=== PATIENT | female | born 1980 | race Caucasian/White ===

== ENCOUNTER 2020-04-09 15:17 | Emergency (ER) | payer MEDICAID, OTHER ==
[~2020-04-09] VITALS: Ht 154.9 cm; Wt 95.3 kg
[2020-04-09 15:20] VITALS: BP 188/83
[2020-04-09 15:38] VITALS: BP 188/83
--- NOTE | 2020-04-09 15:39 | ER.PDOC ---
General Chief Complaint: Requesting Medical Care Stated Complaint: TOOTH PAIN Time seen by MD: 15:18 Source: patient Exam Limitations: no limitations History of Present Illness Initial Comments Pt states toothache x 4 days, fever unknown, pt states she does not have a PCP. Pt states she lost her job and cannot afford a dentist. Pt states she is not taking her Clonidine for her Blood Pressure, pt states she stopped going to the PCP. Timing/Duration: other Associated Symptoms: toothache Severity: moderate Allergies: Coded Allergies: No Known Allergies (Unverified , 04/09/20) Results/Orders Results/Orders Vital Signs Date Time Temp Pulse Resp B/P (MAP) Pulse Ox O2 Delivery O2 Flow Rate FiO2 04/09/20 15:38 98.0 101 16 96 04/09/20 15:20 98.0 101 16 96 04/09/20 15:20 98.0 101 16 Progress Progress I discussed signs and symptoms and treatment and discharge with Dr Mckeon Departure Time of Disposition: 16:00 Disposition: 01 HOME, SELF-CARE Impression: Primary Impression: Toothache Additional Impression: High blood pressure Qualified Codes: I10 - Essential (primary) hypertension Condition: Stable Patient Instructions: Hypertension, Hypertension-SportsMed, Ischemic Stroke, Stroke Prevention, Toothache-Brief Referrals: PCP,UNKNOWN (PCP) PRIMARY CARE PROVIDER Additional Instructions: Return if symptoms worsen. See PCP this week for primary care and high blood pressure, Take Amoxicillin 500 mg three times a day by mouth x 10 days 30# Lisinopril 20 mg one tablet by mouth once a day x 30 days 30# Pt agrees if headache, dizziness, vision problems, weakness and or chest pain or any other concerns pt agrees to go to the ER. See Dentist VISHAL Duration or Time Spent with Pa: 17 minutes Return to Work/School Can a patient return to work?: No Can a patient return to school: No [employer] April 09, 2020 15:39
== END 2020-04-09 16:00 | disposition home or self-care (01) ==
LOC: ER 15:17
DX: K08.89 Other specified disorders of teeth and supporting structures (principal); I10 Essential (primary) hypertension
CPT/HCPCS: 99283

== ENCOUNTER 2020-06-25 13:06 | Emergency (ER) | payer OTHER ==
[~2020-06-25] VITALS: Ht 152.4 cm; Wt 95.7 kg
--- NOTE | 2020-06-25 13:06 | NUR ---
ARRIVAL PT ARRIVED TO ED WTIH C/O RIGHT UPPER SIDE TOOTHACHE THAT STARTED YESTERDAY. PT HAS SWELLING TO RIGHT SIDE OF HER FACE. BEDSIDE MONITORS APPLIED. VITAL SIGNS STABLE. BED IN LOW LOCKED POSITION.
[2020-06-25 13:23] VITALS: BP 173/85
--- NOTE | 2020-06-25 13:26 | ER.PDOC ---
General Chief Complaint: Requesting Medical Care Stated Complaint: TOOTHACHE Time seen by MD: 13:22 Source: patient Exam Limitations: no limitations History of Present Illness Initial Comments Toothache for past few days, no fever or chills. Was here 3 Months ago for same. Timing/Duration: gradual Associated Symptoms: toothache, jaw pain (R) Severity: moderate Allergies: Coded Allergies: No Known Allergies (Unverified , 04/09/20) Past Medical History Medical History: hypertension Surgical History: cholecystectomy Social History Drug Use: none Constitutional: no symptoms reported Mouth: see HPI Respiratory: no symptoms reported Cardiovascular: no symptoms reported Gastrointestinal: no symptoms reported Musculoskeletal: no symptoms reported All Other Systems: Reviewed and Negative Physical Exam General Appearance: alert, no distress Mouth: dental tenderness (right upper molar), widespread dental decay Throat: pharynx nml, voice nml, no airway problems Respiratory: no resp. distress, lungs clear CVS: reg. rate & rhythm, heart sounds nml Abdomen: non-tender, no organomegaly Extremities: non-tender, ROM nml Skin Exam: Normal Color, Warm/Dry NEURO/PSYCH: oriented X3, mood/effect nml Departure Time of Disposition: 13:25 Disposition: 01 HOME, SELF-CARE Impression: Primary Impression: Infected dental carries Condition: Stable Referrals: PCP,UNKNOWN (PCP) PRIMARY CARE PROVIDER Additional Instructions: Clindamycin Ibuprofen F/U with your Dentist in 1-2 days Return to ED if worsening or concerns Duration or Time Spent with Pa: 10 min DOE VILLA MD Jun 25, 2020 13:26
== END 2020-06-25 13:29 | disposition home or self-care (01) ==
LOC: ER 13:06
DX: K04.7 Periapical abscess without sinus (principal); K02.9 Dental caries, unspecified; I10 Essential (primary) hypertension; Z90.49 Acquired absence of other specified parts of digestive tract
CPT/HCPCS: 99283

== ENCOUNTER 2020-07-04 09:42 | Emergency (ER) | payer OTHER ==
[~2020-07-04] VITALS: Ht 152.4 cm; Wt 95.7 kg
[2020-07-04 09:55] VITALS: BP 154/93
[2020-07-04 10:00] VITALS: BP 154/93
--- NOTE | 2020-07-04 10:01 | NUR ---
ARRIVAL PATIENT ARRIVED TO [facility] AMBULATORY, C/O OF FEVER AND SORE THROAT FOR THE LAST 3-4 DAYS, PATIENT HAS BEEN TREATING HERSELF WITH OVER THE COUNTER MEDICATIONS WITH NO RELIEF, CAME TODAY TO THE ED FOR EVAL.
--- NOTE | 2020-07-04 10:12 | ER.PDOC ---
General Chief Complaint: Sore Throat Stated Complaint: SORE THROAT,BODY ACHE FEVER,COUGH Time seen by MD: 10:12 Source: patient Exam Limitations: no limitations History of Present Illness Timing/Duration: gradual Associated Symptoms: fever/chills, mod sore throat, congestion Severity: moderate Worsen By: nothing Prior symptoms/Treatment: Similar symptoms previous Allergies: Coded Allergies: No Known Allergies (Unverified , 04/09/20) Past Medical History Medical History: hypertension Surgical History: appendectomy Family History Significant Family History: no pertinent family hx Social History Smoking: non-smoker Alcohol Use: none Drug Use: none Constitutional: chills, fever Eyes: denies no symptoms reported, denies see HPI, denies blindness, denies blurred vision, denies drainage, denies decreased acuity, denies foreign body sensation, denies inflammation, denies pain, denies photophobia, denies previous injury, denies shadows, denies tunnel vision, denies vision change, denies contact lenses, denies glasses, denies other Ears: denies no symptoms reported, denies see HPI, denies dizziness, denies pain, denies tinnitus, denies bloody discharge, denies clear discharge, denies purulent discharge, denies serosanguinous discharge, denies previous injury, denies other Nose: denies no symptoms reported, denies see HPI, denies clots, denies congestion, denies epistaxis, denies pain, denies bloody discharge, denies clear discharge, denies purulent discharge, denies serosanguinous discharge, denies previous injury, denies other Mouth: denies no symptoms reported, denies see HPI, denies clots, denies loose teeth, denies pain, denies swelling, denies bloody discharge, denies clear discharge, denies purulent discharge, denies serosanguinous discharge, denies previous injury, denies other Throat: swelling, painful swallowing Respiratory: denies no symptoms reported, denies see HPI, denies cough, denies orthopnea, denies shortness of breath, denies stridor, denies wheezing, denies other Cardiovascular: denies no symptoms reported, denies see HPI, denies chest pain, denies edema, denies palpitations, denies syncope, denies other Gastrointestinal: denies no symptoms reported, denies see HPI, denies abdominal pain, denies constipation, denies diarrhea, denies nausea, denies vomiting, denies other Musculoskeletal: denies no symptoms reported, denies see HPI, denies back pain, denies gout, denies joint pain, denies joint swelling, denies muscle pain, denies muscle stiffness, denies neck pain, denies other Skin: denies no symptoms reported, denies see HPI, denies change in color, denies change in hair/nails, denies dryness, denies lesions, denies lumps, denies rash, denies other Neurological: denies no symptoms reported, denies see HPI, denies anxiety, denies depressed, denies emotional problems, denies headache, denies numbness, denies paresthesia, denies pre-existing deficit, denies seizure, denies tingling, denies tremors, denies weakness, denies other Hematologic/Lymphatic: denies no symptoms reported, denies see HPI, denies anemia, denies blood clots, denies easy bleeding, denies easy bruising, denies swollen glands, denies other Immunological/Allergic: denies no symptoms reported, denies see HPI, denies food allergy, denies grass allergy, denies mold allergy, denies pollen allergy, denies HIV/AIDS, denies transplant Physical Exam General Appearance: mild distress Head/Neck: head nml inspection, neck nml inspection, trachea midline, no lymphadenopathy, thyroid nml Eyes: eyes nml inspection, PERRL, no nystagmus Mouth: lips, gums nml, no drooling, no thrush, membranes nml Throat: pharyngeal erythema Respiratory: no resp. distress, lungs clear CVS: reg. rate & rhythm, heart sounds nml Abdomen: non-tender, no organomegaly Extremities: non-tender, ROM nml Skin Exam: Normal Color, Warm/Dry NEURO/PSYCH: oriented X3, mood/effect nml Results/Orders Results/Orders Orders - GLORY VANG MD Novel Coronavirus 2019([facility]) (07/04/20 10:12) Vital Signs Date Time Temp Pulse Resp B/P (MAP) Pulse Ox O2 Delivery O2 Flow Rate FiO2 07/04/20 10:00 99.0 105 20 154/93 (113) 95 Room Air 07/04/20 09:55 99.0 105 20 07/04/20 09:55 99.0 105 20 154/93 (113) 95 Room Air 07/04/20 09:55 99.0 105 20 95 Departure Time of Disposition: 10:13 Disposition: 01 HOME, SELF-CARE Impression: Primary Impression: Acute tonsillitis Qualified Codes: J03.01 - Acute recurrent streptococcal tonsillitis Additional Impression: COVID-19 ruled out Condition: Improved Patient Instructions: Sore Throat, [id number] Referrals: PCP,UNKNOWN (PCP) PRIMARY CARE PROVIDER Comments amoxil 500 tid X10 days Duration or Time Spent with Pa: 15 GLORY VANG MD Jul 04, 2020 10:12
== END 2020-07-04 10:35 | disposition home or self-care (01) ==
LOC: ER 09:42
DX: J03.00 Acute streptococcal tonsillitis, unspecified (principal); Z20.828 Contact with and (suspected) exposure to other viral communicable diseases; I10 Essential (primary) hypertension
CPT/HCPCS: 87635; 99283